=== PATIENT | female | born 1950 | race Caucasian/White ===

== ENCOUNTER → 2019-06-02 | Outpatient (CLI) | payer MEDICARE, BC ==
[~2019-06-02] MED LIST: ATIVAN 0.50.5 MG/TAB PO; CELEBREX 200MG200 MG PO; COLACE 100100 MG/CAP PO; COUMADIN 2MG2 MG/TAB PO; COUMADIN 5MG5 MG/TAB PO; DESYREL 100MG100 MG PO; DRAMAMINE50 M1 PO; ESTRACE0.5 MG PO; FOLIC ACID 40400 MCG PO; IRON325 M1 PO; MELAT3MGTAB PO; NORCO 325 MG-7.1 TAB PO; PERCOCET 325 MG1 TA2 PO; REQUIP0.25 MG PO; ROXICODONE 55 MG/TAB PO; THYROID COMPOUND PO; VITAMIN C500 MG PO
== END ==
LOC: MC.RAD 08:30
DX: Z12.31 Encounter for screening mammogram for malignant neoplasm of breast (principal); Z98.82 Breast implant status

== ENCOUNTER → 2022-04-18 | Outpatient (CLI) | payer BC, MEDICARE | LOC: MC.RAD 10:19 | DX: Z12.31 Encounter for screening mammogram for malignant neoplasm of breast (principal); N64.89 Other specified disorders of breast; Z98.82 Breast implant status ==

== ENCOUNTER → 2022-04-25 | Outpatient (CLI) | payer BC, MEDICARE | LOC: MC.RAD 08:56 | DX: N64.9 Disorder of breast, unspecified (principal) ==